=== PATIENT | female | born 1960 | race African-American/Black ===

== ENCOUNTER 2025-07-18 21:02 | Emergency (ER) | payer OTHER ==
[~2025-07-18] VITALS: Ht 170.2 cm; Wt 124.2 kg
[2025-07-18 21:04] VITALS: O2SAT 99
[2025-07-18 21:05] VITALS: BP 157/74; PULSE 75; RESP 15; TEMP 36.8; O2SAT 100
[2025-07-18] MEDS: LIDOCAINE 5% PATCH TOP SCH (22:13)
[2025-07-18] MEDS: KETOROLAC 15MG/ML VIAL IM ONE (22:15)
[2025-07-18] MEDS ORDERED: NAPR-1176 MT (22:46)
[2025-07-18] MEDS ORDERED: LIDO-53 TP (22:46)
[2025-07-18] MEDS ORDERED: CYCL5TAB3 MT (22:48)
== END 2025-07-18 23:18 | disposition home or self-care (01) ==
LOC: ER 21:02
DX: M25.512 Pain in left shoulder (principal); E11.9 Type 2 diabetes mellitus without complications; Z88.0 Allergy status to penicillin
CPT/HCPCS: 99283; 73030; 96372; J1885